=== PATIENT | female | born 1960 | race Caucasian/White ===

== ENCOUNTER → 2016-11-24 | Outpatient (CLI) | payer BC ==
[~2016-11-24] MED LIST: ALLERGY SHOT INJ; ASCO-262 PO; CALCIUM CITRATE PO; CHOL10003 PO; CHOL5000 PO; CIPR500T78 PO; CYAN100053 IJ; ESTR1PAT10 PO; HORMONE CREAM TOP; HYDR-34 PO; LRT10T PO; LVT.1T PO; METR500T PO; MULT-974 PO; NAPR250T PO; NATURE THROID PO; OMEP-10 PO; THYR113. PO; VERA180T5 PO; VITAMIN C 1000MG PO; VRP80T PO; [UNRECOGNIZED DRUG - OTHER] PO
--- OUTSIDE RECORDS SUMMARY | 2016-11-24 07:49 | XMS REPORT | Continuity of Care Document ---
Author Author [facility] Organization [facility] Address Unknown Phone Unavailable Allergies Active Description Code Type Severity Reaction Onset Reported/Identified Relationship to Patient Clinical Status Yes cephalexin [id number] Drug Allergy Mild RASH 08/23/2010 Yes Penicillins [id number] Drug Allergy Mild SOA 08/23/2010 Yes Penicillins [id number] Drug Allergy Severe SOA 12/07/2014 Medications Problems Date Dx Coded Attending Type Code Diagnosis Diagnosed By 08/23/2010 Ot 845.00 08/23/2010 Ot 959.7 08/23/2010 Ot E000.8 08/23/2010 Ot E849.5 08/23/2010 Ot E927.8 02/08/2011 Ot 401.9 HYPERTENSION NOS 02/08/2011 Ot 719.41 JOINT PAIN-SHLDER 02/08/2011 Ot V57.1 PHYSICAL THERAPY NEC 02/08/2011 Ot V58.43 AFTERCARE POST SURGERY INJURY/TRAUMA 03/02/2011 Ot 401.9 HYPERTENSION NOS 03/02/2011 Ot 719.41 JOINT PAIN-SHLDER 03/02/2011 Ot V57.1 PHYSICAL THERAPY NEC 03/02/2011 Ot V58.43 AFTERCARE POST SURGERY INJURY/TRAUMA 08/27/2011 Ot 719.41 JOINT PAIN-SHLDER 08/27/2011 Ot V57.1 PHYSICAL THERAPY NEC 08/27/2011 Ot V58.43 AFTERCARE POST SURGERY INJURY/TRAUMA 10/07/2011 Ot 719.41 JOINT PAIN-SHLDER 10/07/2011 Ot V57.1 PHYSICAL THERAPY NEC 10/07/2011 Ot V58.43 AFTERCARE POST SURGERY INJURY/TRAUMA 01/13/2014 BELÉN CHARLES DO Ot 244.9 HYPOTHYROIDISM NOS 01/13/2014 BELÉN CHARLES DO Ot 276.51 DEHYDRATION 01/13/2014 BELÉN CHARLES DO Ot 427.9 CARDIAC DYSRHYTHMIA NOS 01/13/2014 BELÉN CHARLES DO Ot 562.11 DIVERTICULITIS COLON (W/O MENT OF HEMORR 01/13/2014 BELÉN CHARLES DO Ot 592.0 CALCULUS OF KIDNEY 12/06/2014 Ot V76.12 12/08/2014 BELÉN CHARLES DO Ot 244.9 HYPOTHYROIDISM NOS 12/08/2014 BELÉN CHARLES DO Ot 493.90 ASTHMA, UNSPECIFIED 12/08/2014 BELÉN CHARLES DO Ot 530.11 REFLUX ESOPHAGITIS 12/08/2014 BELÉN CHARLES DO Ot 553.3 DIAPHRAGMATIC HERNIA 12/08/2014 BELÉN CHARLES DO Ot 562.10 DIVERTICULOSIS COLON (W/O MENT OF HEMORR 12/08/2014 BELÉN CHARLES DO Ot 574.00 CHOLELITH W AC CHOLECYST 12/08/2014 BELÉN CHARLES DO Ot 577.0 ACUTE PANCREATITIS 12/21/2014 RADHA CHARLES TELEGRAPH OFFICE TELEPHONE CLERK Ot 536.8 12/21/2014 RADHA CHARLES TELEGRAPH OFFICE TELEPHONE CLERK Ot 574.20 01/21/2015 Ot V76.12 01/21/2015 Ot V76.12 01/21/2015 Ot V76.12 01/21/2015 RADHA CHARLES TELEGRAPH OFFICE TELEPHONE CLERK Ot 729.5 01/21/2015 RYLIE MCCALL DO Ot V76.12 01/21/2015 RADHA CHARLES TELEGRAPH OFFICE TELEPHONE CLERK Ot 709.9 01/21/2015 NICCI PEREZ DO Ot V72.84 01/21/2015 NICCI PEREZ DO Ot 530.11 01/21/2015 NICCI PEREZ DO Ot 562.10 01/21/2015 Ot V76.12 01/21/2015 RADHA CHARLES TELEGRAPH OFFICE TELEPHONE CLERK Ot 536.8 01/21/2015 RADHA CHARLES TELEGRAPH OFFICE TELEPHONE CLERK Ot 574.20 02/27/2015 Ot V76.12 04/16/2015 Ot V76.12 04/16/2015 Ot V76.12 04/16/2015 Ot V76.12 04/16/2015 RADHA CHARLES TELEGRAPH OFFICE TELEPHONE CLERK Ot 729.5 04/16/2015 RYLIE MCCALL DO Ot V76.12 04/16/2015 RADHA CHARLES TELEGRAPH OFFICE TELEPHONE CLERK Ot 709.9 04/16/2015 PEREZ NICCI DRISCOLL Devyn Ot V72.84 04/16/2015 PEREZ NICCI DRISCOLL Devyn Ot 530.11 04/16/2015 [place] BRIAN DRISCOLLELLY Shepard Ot 562.10 04/16/2015 Ot V76.12 04/16/2015 RADHA CHARLES TELEGRAPH OFFICE TELEPHONE CLERK Ot 536.8 04/16/2015 RADHA CHARLES TELEGRAPH OFFICE TELEPHONE CLERK Ot 574.20 04/16/2015 Ot V76.12 04/16/2015 Ot V76.12 04/16/2015 Ot V76.12 04/16/2015 RADHA CHARLES TELEGRAPH OFFICE TELEPHONE CLERK Ot 729.5 04/16/2015 RYLIE MCCALL DO Ot V76.12 04/16/2015 RADHA CHARLES TELEGRAPH OFFICE TELEPHONE CLERK Ot 709.9 04/16/2015 [place] NICCI D Ot V72.84 04/16/2015 [place] INCCI D Ot 530.11 04/16/2015 [place] BRIAN DRISCOLLELLY Shepard Ot 562.10 04/16/2015 Ot V76.12 04/16/2015 RADHA CHARLES TELEGRAPH OFFICE TELEPHONE CLERK Ot 536.8 04/16/2015 RADHA CHARLES TELEGRAPH OFFICE TELEPHONE CLERK Ot 574.20 11/25/2015 RYLIE MCCALL DO Ot Z12.31 12/09/2015 DARON MCCALL DOA Sandy Ot Z12.31 12/19/2015 DARON MCCALL DOA C Ot Z12.31 12/19/2015 DARON MCCALL DOA C Ot Z12.31 03/03/2016 BELÉN CHARLES DO Ot R07.9 CHEST PAIN, UNSPECIFIED 03/03/2016 BELÉN CHARLES DO Ot R07.9 CHEST PAIN, UNSPECIFIED 03/19/2016 BELÉN CHARLES DO Ot R07.9 CHEST PAIN, UNSPECIFIED 05/27/2016 Ot V76.12 OTH SCREEN MAMMO-MALIGN NEOPLASM OF [place] 05/27/2016 RADHA CHARLES TELEGRAPH OFFICE TELEPHONE CLERK Ot 729.5 PAIN IN LIMB 05/27/2016 RYLIE MCCALL DO Ot V76.12 OTH SCREEN MAMMO-MALIGN NEOPLASM OF [place] 05/27/2016 RADHA CHARLES TELEGRAPH OFFICE TELEPHONE CLERK Ot 709.9 SKIN DISORDER NOS 05/27/2016 NICCI PEREZ DO Ot V72.84 EXAM PRE-OPERATIVE NOS 05/27/2016 NICCI PEREZ DO Ot 530.11 REFLUX ESOPHAGITIS 05/27/2016 NICCI PEREZ DO Ot 562.10 DIVERTICULOSIS COLON (W/O MENT OF HEMORR 05/27/2016 Ot V76.12 OTH SCREEN MAMMO-MALIGN NEOPLASM OF [place] 05/27/2016 RADHA CHARLES TELEGRAPH OFFICE TELEPHONE CLERK Ot 536.8 STOMACH FUNCTION DIS NEC 05/27/2016 RADHA CHARLES TELEGRAPH OFFICE TELEPHONE CLERK Ot 574.20 CHOLELITHIASIS NOS 11/24/2016 RYLIE MCCALL DO Ot Z12.31 ENCNTR SCREEN MAMMOGRAM FOR MALIGNANT NE 11/24/2016 BELÉN CHARLES DO Ot R07.9 CHEST PAIN, UNSPECIFIED Procedures Code Description Performed By Performed On 51.23 12/07/2014 Results Encounters ACCT No. Visit Date/Time Discharge Status Pt. Type Provider Facility Loc./Unit Complaint [id number] 12/07/2014 11:11:00 2014 10:50:00 DIS Inpatient BELÉN CHARLES DO [facility] SURGICAL PANCREATITIS [id number] 12/07/2014 09:41:00 2014 23:59:59 CLS Outpatient RADHA CHARLES [facility] RAD ACUTE ABDOMINAL PAIN [id number] 03/20/2014 11:20:00 2013 23:59:59 CLS Outpatient NICCI PEREZ DO [facility] SDC DIVERTICULITIS [id number] 03/15/2014 07:25:00 2013 23:59:59 CLS Outpatient NICCI PEREZ DO [facility] PREOP DIVERTICULITIS [id number] 01/11/2014 17:41:00 2013 10:41:00 DIS Inpatient BELÉN CHARLES DO [facility] 4TH DIVERTICULITIS [id number] 12/12/2013 09:55:00 2013 23:59:59 CLS Outpatient RADHA CHARLES TELEGRAPH OFFICE TELEPHONE CLERK [facility] LAB NON-HEALING LESION OCCIPITAL SCALP [id number] 11/17/2013 07:19:00 2013 23:59:59 CLS Outpatient RYLIE MCCALL DO [facility] RAD SCREENING [id number] 05/04/2013 10:24:00 2012 23:59:59 CLS Outpatient RADHA CHARLES TELEGRAPH OFFICE TELEPHONE CLERK [facility] RAD L RYDER PAIN [id number] 11/24/2016 07:45:00 ACT Outpatient RYLIE MCCALL DO [facility] RAD DISCHARGE [id number] 03/02/2016 06:41:00 ACT Outpatient BELÉN CHARLES DO [facility] CARD CHEST PAIN [id number] 11/22/2015 09:51:00 ACT Outpatient RYLIE MCCALL DO [facility] RAD SCREENING [id number] 01/21/2015 18:42:00 Document Registration [id number] 01/21/2015 18:41:00 Document Registration [id number] 01/21/2015 18:41:00 Document Registration [id number] 01/21/2015 18:41:00 Document Registration [id number] 01/21/2015 18:41:00 Document Registration [id number] 11/19/2014 09:50:00 Document Registration [id number] 09/18/2011 08:00:00 Document Registration [id number] 08/26/2011 08:02:00 Document Registration [id number] 11/06/2010 09:27:00 Document Registration
--- NOTE | 2016-11-24 08:29 | Diagnostic Imaging Report ---
EXAMINATION: Bilateral diagnostic mammogram. CAD is utilized. The current study was also evaluated with a Computer Aided Detection (CAD) system. COMPARISON: 11/22/15. FINDINGS: The breasts are composed of scattered fibroglandular densities. There is no mass, architectural distortion or suspicious calcification. Benign appearing calcifications are seen. IMPRESSION: No mammographic evidence of malignancy. Ultrasound evaluation pending. ACR BI-RADS Category 0: Incomplete. (Needs additional imaging evaluation). Result letter will be mailed to the patient. Note: At least 10% of breast cancer is not imaged by mammography. Dictated by: Dictated on workstation # [id number]
--- NOTE | 2016-11-24 08:56 | Diagnostic Imaging Report ---
EXAMINATION: Right breast ultrasound. INDICATION: Right nipple discharge. FINDINGS: The 4 quadrants and retroareolar region of the right breast were scanned with a lesion seen at the 3 o'clock retroareolar area measuring 0.5 x 0.5 x 0.6 cm. It has increased color-flow, compatible with a solid lesion. It is circumscribed and in favor of a benign etiology. No other lesion is seen. The findings and recommendations were discussed personally with the patient at the time of dictation. IMPRESSION: There is a 0.6 cm solid nodule in the retroareolar 3 o'clock zone, favored to be benign. An ultrasound-guided biopsy is recommended. ACR BI-RADS Category 4A: Low suspicion of malignancy. The report was faxed to the office of Dr. Alcantar by CARLOS at 9 AM. BI-RADS 4A. Please fax is also present physician and document Dictated by: Dictated on workstation # [id number]
== END ==
LOC: RAD 07:45
PROVIDERS: ATTEND Obstetrics & Gynecology
DX: N64.52 Nipple discharge (principal); N63 Unspecified lump in breast
CPT/HCPCS: 76641; 77066

== ENCOUNTER → 2016-11-25 | Outpatient (CLI) | payer BC ==
[~2016-11-25] VITALS: Ht 167.6 cm; Wt 64.4 kg
[~2016-11-25] MED LIST changes: +LIDOCAINE 1% INJ 20 ML (XYLOCAINE) VIAL INJ ONE; +LIDOCAINE 1% INJ 20 ML (XYLOCAINE) VIAL ONE
[2016-11-25 13:02] VITALS: BP 130/87
[2016-11-25 13:57] VITALS: BP 120/87
--- NOTE | 2016-11-25 16:48 | Diagnostic Imaging Report ---
EXAMINATION: Vacuum-assisted ultrasound-guided biopsy of breast mass right. A metallic clip placed to jodi biopsy site. INDICATION: Right breast mass. CONSENT: Informed consent was obtained from the patient. The risks, benefits, potential complications and alternatives were reviewed and all questions answered to the patient's satisfaction. FINDINGS: Ultrasound images demonstrate retroareolar 3:00 mass. PROCEDURE: After sterile preparation and draping, 1% lidocaine was utilized for local anesthesia. A vacuum-assisted biopsy device with 14-gauge needle was introduced under live ultrasound guidance into the lesion. Good needle position was documented with ultrasound images. A metallic clip was placed to jodi the site of the biopsy. A subsequent mammogram is performed and confirms the proper positioning of the clip. Multiple samples were obtained and sent to pathology. The patient tolerated the procedure well with no immediate complications. IMPRESSION: Successful ultrasound-guided biopsy of retroareolar 3:00 mass. A metallic clip placed to jodi biopsy site. Dictated by: Dictated on workstation # [id number]
--- NOTE | 2016-11-25 19:19 | Diagnostic Imaging Report ---
EXAMINATION: True lateral and CC projection mammogram of the right breast. INDICATION: Documentation of clip position after ultrasound-guided biopsy. IMPRESSION: There is good position of the clip placed after ultrasound-guided biopsy in the medial retroareolar region. Pathology results are pending. Dictated by: Dictated on workstation # [id number]
== END ==
LOC: RAD 12:47
PROVIDERS: ATTEND Obstetrics & Gynecology
DX: R92.8 Other abnormal and inconclusive findings on diagnostic imaging of breast (principal)
CPT/HCPCS: 19083; 88305

== ENCOUNTER → 2017-11-26 | Outpatient (CLI) | payer BC ==
[~2017-11-26] MED LIST changes: -LIDOCAINE 1% INJ 20 ML (XYLOCAINE) VIAL INJ ONE; -LIDOCAINE 1% INJ 20 ML (XYLOCAINE) VIAL ONE
--- NOTE | 2017-11-26 18:08 | Diagnostic Imaging Report ---
Digital mammogram bilateral screening. This study was compared to the prior exams of 11/24/2016, 11/22/2015, and 11/19/2014. At this time, there are no current complaints. The current study was also evaluated with a Computer Aided Detection (CAD) system. FINDINGS: The fibroglandular tissue in both breasts is heterogeneously dense. This does limit the sensitivity of this exam. On the craniocaudal view of the right breast in the retroareolar region there is an area of increased density. This finding was not clearly evident on the previous exams. This area of increased density is not as striking on the MLO view and this finding may merely be secondary to fibroglandular tissue alone. Even so, I would recommend that a compression view of this area be obtained in both the MLO and CC projections for further study. Ultrasound should also be performed. The left breast is unchanged. IMPRESSION: Additional mammographic views and ultrasound of the right breast will be recommended for further study. ACR BI-RADS Category 0: Incomplete. (Needs additional imaging evaluation). Result letter will be mailed to the patient. Note: At least 10% of breast cancer is not imaged by mammography. Dictated by: Dictated on workstation # [id number]
== END ==
LOC: RAD 10:11
PROVIDERS: ATTEND Obstetrics & Gynecology
DX: Z12.31 Encounter for screening mammogram for malignant neoplasm of breast (principal)
CPT/HCPCS: 77067

== ENCOUNTER → 2017-12-06 | Outpatient (CLI) | payer BC ==
--- NOTE | 2017-12-06 19:46 | Diagnostic Imaging Report ---
INDICATION: Right breast density. Patient presents for additional views. COMPARISON: Correlation is made with recent screening study from 11/26/2017. The current study was also evaluated with a Computer Aided Detection (CAD) system. FINDINGS: Reportedly, the patient underwent biopsy in the retroareolar right breast since the mammogram from 11/25/2016. Biopsy results did show intraductal papilloma. The density in the retroareolar right breast likely represents postsurgical scarring. Additional views in the CC, ML spot compression views, and a conventional 90 degree lateral view in the 3-D technique were obtained. No mass is seen. There are no malignant appearing microcalcifications. IMPRESSION: Additional views fail to demonstrate a discrete mass. The area of density in the retroareolar right breast most likely represents postsurgical scarring. The patient may return to routine annual screening mammography. ACR BI-RADS Category 2: Benign findings. Result letter will be mailed to the patient. Note: At least 10% of breast cancer is not imaged by mammography. Dictated by: Dictated on workstation # [id number]
== END ==
LOC: RAD 09:15
PROVIDERS: ATTEND Nurse Practitioner
DX: R92.8 Other abnormal and inconclusive findings on diagnostic imaging of breast (principal)

== ENCOUNTER 2018-06-07 11:35 | Outpatient (RCR) | payer BC | END 2018-06-13 13:27 | disposition home or self-care (01) | PROVIDERS: ATTEND Orthopaedic Surgery | DX: Z47.89 Encounter for other orthopedic aftercare (principal); M25.512 Pain in left shoulder ==

== ENCOUNTER 2018-08-26 08:33 | Outpatient (RCR) | payer BC | END 2018-08-26 09:54 | disposition home or self-care (01) | PROVIDERS: ATTEND Orthopaedic Surgery | DX: Z47.89 Encounter for other orthopedic aftercare (principal); M25.512 Pain in left shoulder ==

== ENCOUNTER → 2018-12-02 | Outpatient (CLI) | payer BC ==
--- NOTE | 2018-12-02 11:01 | Diagnostic Imaging Report ---
INDICATION: Routine screening. Comparison is made with prior mammogram from 11/26/2017 and 11/24/2016. 2-D and 3-D bilateral screening mammography was performed with a Computer Aided Detection (CAD) system. FINDINGS: Scattered fibroglandular densities are identified bilaterally. The parenchymal pattern is stable. No mass or malignant appearing microcalcifications are seen. The axillae are unremarkable. IMPRESSION: No mammographic features suspicious for malignancy are identified. ACR BI-RADS Category 1: Negative. Result letter will be mailed to the patient. Note: At least 10% of breast cancer is not imaged by mammography. Dictated by: Dictated on workstation # [id number]
== END ==
LOC: RAD 08:11
PROVIDERS: ATTEND Obstetrics & Gynecology
DX: Z12.31 Encounter for screening mammogram for malignant neoplasm of breast (principal); Z01.419 Encounter for gynecological examination (general) (routine) without abnormal findings
CPT/HCPCS: 77067

== ENCOUNTER → 2019-02-16 | Outpatient (CLI) | payer BC ==
--- NOTE | 2019-02-16 12:08 | Diagnostic Imaging Report ---
MRI LT UPPER EXT JOINT W/O Technique: Multiplanar, multisequence MR imaging of the left shoulder was performed without contrast. Comparison: Left shoulder MRI from 03/04/2018. Indication: Persistent left shoulder pain. Three rotator cuff repairs in the past. Findings: Rotator cuff: Multiple soft tissue anchors are present within the humeral head from prior superior rotator cuff repair. Recurrent full-thickness and complete tear of the supraspinatus has torn fibers retracted to the level of the glenohumeral joint. Full-thickness tear of the anterior one half of the infraspinatus is present. Moderate fatty atrophy of the supraspinatus and superior one half of the infraspinatus has developed. The teres minor remains intact. Subscapularis is also intact. Glenoid labrum: Diffuse degenerative truncation of the glenoid labrum. No paralabral cyst. Long head of biceps: The intracapsular segment of the long head of the biceps is not visualized and may be torn or has undergone tenotomy. Bones and cartilage: Superior subluxation of the humeral head due to superior rotator cuff tear. Multifocal partial-thickness chondromalacia within the glenohumeral joint. Hypertrophic degenerative changes of the acromioclavicular joint. Undersurface remodeling of the humeral head secondary to superior subluxation of the humeral head. Soft tissues: Small glenohumeral joint effusion. No MRI findings to suggest adhesive capsulitis. Fluid in the subacromial and subdeltoid space is compatible with full-thickness rotator cuff tear. IMPRESSION: 1. Recurrent massive rotator cuff tear includes a complete and retracted tear of the supraspinatus and a full-thickness tear of the anterior one half of the infraspinatus. 2. Moderate rotator cuff tear arthropathy of the glenohumeral joint. 3. Tear versus tenotomy of the long head of the biceps. Dictated by: Dictated on workstation # [id number]
== END ==
LOC: RAD 08:58
PROVIDERS: ATTEND Nurse Practitioner
DX: M75.122 Complete rotator cuff tear or rupture of left shoulder, not specified as traumatic (principal); M12.812 Other specific arthropathies, not elsewhere classified, left shoulder; Z98.890 Other specified postprocedural states
CPT/HCPCS: 73221

== ENCOUNTER → 2019-06-26 | Outpatient (RCR) | payer BC | END | disposition home or self-care (01) | PROVIDERS: ATTEND Orthopaedic Surgery | DX: Z98.890 Other specified postprocedural states (principal) ==

== ENCOUNTER 2019-09-22 08:00 | Outpatient (RCR) | payer BC | END 2019-09-25 09:09 | disposition home or self-care (01) | PROVIDERS: ATTEND Orthopaedic Surgery | DX: M75.112 Incomplete rotator cuff tear or rupture of left shoulder, not specified as traumatic (principal); Z98.890 Other specified postprocedural states ==

== ENCOUNTER → 2019-12-08 | Outpatient (CLI) | payer BC ==
--- NOTE | 2019-12-08 14:22 | Diagnostic Imaging Report ---
INDICATION: Pain below the left nipple. Comparison is made with prior mammogram 12/02/2018 and 11/26/2017. 2-D and 3-D bilateral diagnostic mammography was performed with CAD. Scattered fibroglandular densities are identified bilaterally. The overall parenchymal pattern is stable. There is some lucency in the retroareolar slightly inner left breast, similar to prior exam. This could represent a lipoma. No other mass is seen. No malignant-appearing microcalcifications are seen. Axillae are unremarkable. IMPRESSION: BI-RADS 0 No suspicious mammographic features. Even so, directed sonographic interrogation of the area of pain just below the left nipple is recommended and will be performed today. ACR BI-RADS Category 0: Incomplete. (Needs additional imaging evaluation). Result letter will be mailed to the patient. Note: At least 10% of breast cancer is not imaged by mammography. Dictated by: Dictated on workstation # [id number]
--- NOTE | 2019-12-08 15:16 | Diagnostic Imaging Report ---
INDICATION: Pain below the left nipple. CORRELATION is made with diagnostic mammogram performed earlier the same day. Sonographic interrogation of the area of pain in the retroareolar and infra-areolar location was performed. No sonographic abnormality is identified. No solid or cystic mass is detected. IMPRESSION: BI-RADS Category 1 No sonographic abnormality is identified. ACR BI-RADS Category 1: Negative. Result letter will be mailed to the patient. Note: At least 10% of breast cancer is not imaged by mammography. Dictated by: Dictated on workstation # [id number]
== END ==
LOC: RAD 12:51
PROVIDERS: ATTEND Obstetrics & Gynecology
DX: N64.4 Mastodynia (principal)
CPT/HCPCS: 76642; 77066

== ENCOUNTER → 2020-12-20 | Outpatient (CLI) | payer BC ==
--- NOTE | 2020-12-20 18:48 | Diagnostic Imaging Report ---
INDICATION: Routine screening. Comparison is made with prior mammogram 12/08/2019 and 12/02/2018. 2-D and 3-D bilateral screening mammography was performed with CAD. The current study was also evaluated with a Computer Aided Detection (CAD) system. 3-D tomosynthesis was also performed and reviewed. Scattered fibroglandular densities are identified bilaterally. No mass or malignant appearing microcalcifications are seen. Axillae are unremarkable. IMPRESSION: No mammographic features suspicious for malignancy are identified. ACR BI-RADS Category 1: Negative. Result letter will be mailed to the patient. Note: At least 10% of breast cancer is not imaged by mammography. Dictated by: Dictated on workstation # [id number]
== END ==
LOC: RAD 10:26
PROVIDERS: ATTEND Obstetrics & Gynecology
DX: Z12.31 Encounter for screening mammogram for malignant neoplasm of breast (principal)
CPT/HCPCS: 77063; 77067

== ENCOUNTER 2021-12-18 05:41 | Outpatient (CLI) | payer BC ==
[~2021-12-18 05:41] MED LIST changes: +ASPI-808 PO; +MONT4GRA PO
== END 2021-12-18 07:08 | disposition home or self-care (01) ==
LOC: PREOP 05:41
PROVIDERS: ATTEND Surgery
DX: Z01.818 Encounter for other preprocedural examination (principal)

== ENCOUNTER 2021-12-22 10:57 | Day surgery (SDC) | payer BC ==
[~2021-12-22] VITALS: Ht 167.6 cm; Wt 70.5 kg
[2021-12-22] MEDS ORDERED: LACTATED RINGERS 1,000 ML IV ONE (11:02)
[2021-12-22] MEDS ORDERED: LACTATED RINGERS 1,000 ML IV STA (11:03)
[2021-12-22] MEDS ORDERED: HURRICAINE EXT TUBE (BENZOCAINE) XX PRN (11:15)
[2021-12-22 11:20] VITALS: BP 119/81
--- NOTE | 2021-12-22 11:43 | Progress Note-Pre Operative ---
Pre-Operative Progress Note H&P Reviewed The H&P was reviewed, patient examined and no changes noted. Time Seen by Provider: 11:40 Date H&P Reviewed: Dec 22, 2021 Time H&P Reviewed: 11:40 Pre-Operative Diagnosis: Chronic Gastritis, Dysphagia CARLOS EDUARDO MANLEY DO Dec 22, 2021 11:43
[2021-12-22] MEDS ORDERED: proPOfol 200 MG/20 ML (DIPRIVAN) VIAL IV ONE ×2 (11:58→12:09)
[2021-12-22 12:19] VITALS: BP 112/65
--- NOTE | 2021-12-22 12:19 | Progress Note-Post Operative ---
Post-Operative Progess Note Surgeon (s)/Force Adjustment Supervisor (s) Surgeon CARLOS EDUARDO MANLEY DO Force Adjustment Supervisor: none Pre-Operative Diagnosis Chronic Gastritis, Dysphagia Post-Operative Diagnosis Gastritis Esophagitis Gastric polyp hiatal hernia Procedure & Operative Findings Date of Procedure 12/22/21 Procedure Performed/Findings EGD with hot bx, removal of polyp EGD with bx PROCEDURE NOTE: After informed consent was obtained, the patient was brought to the endoscopy suite, placed in bed in left lateral decubitus position. She was administered IV sedation by the STAFF RADIOGRAPHER who then monitored vitals the entire time, heart rate, blood pressure and pulse ox and the scope was inserted down the mouth through the esophagus into the stomach. On the way down, noted some mild esophagitis, took a picture, pushed into the stomach, pushed past the antrum into the duodenum; duodenum looked good. Pulled back and noted moderate gastritis of the antrum and did a biopsy here. Then retroflexed the scope and saw a small hiatal hernia, took a picture of this and then noted a larger flat polyp in the cardia. Elected to do a hot biopsy and completely remove the polyp in two bites. Finally pulled the scope into the GE junction, took another picture of the esophagitis and then did a biopsy of the GE junction. Pushed the scope back into the stomach, suctioned all the air out of the stomach. At this point pulled the scope up the esophagus and out the mouth. The patient tolerated the procedure, and she recovered in endoscopy suite. Anesthesia Type IV sedation by anesthesia Estimated Blood Loss Estimated blood loss (mL): scant Specimens/Packing Specimens Removed antral bx GE jx bx body of stomach bx Gastric polyp CARLOS EDUARDO MANLEY DO Dec 22, 2021 12:19
--- NOTE | 2021-12-22 12:19 | Endoscopy Discharge Instruct ---
Endo Procedure/Findings Findings 1.: Polyp 2.: Gastritis 3.: Hiatal Hernia Discharge Instructions - Activity: You might feel a little sleepy until tomorrow. This is due to the medicine you received to relax you. Until tomorrow, you should: NOT drive a car, operate machinery or power tools. NOT drink any alcoholic beverages. NOT make any important decisions or sign importortant papers. Do not return to work until tomorrow, unless otherwise instructed. Resume previous activities tomorrow. Diet: Start by taking liquids. If you tolerate liquids, advance to solid food. 1.: EGD in 3 years Notify Physician - If you experience excessive bleeding, unusual abdominal pain, fever, or chest pain, contact your doctor immediately. CARLOS EDUARDO MANLEY DO Dec 22, 2021 12:19
[2021-12-22 12:25] VITALS: BP 115/70
[2021-12-22 12:50] VITALS: BP 120/68
--- NOTE | 2021-12-22 13:22 | Anesthesia-General Post-Op ---
MAC Patient Condition Mental Status/LOC: Same as Preop Cardiovascular: Satisfactory Nausea/Vomiting: Absent Respiratory: Satisfactory Pain: Controlled Complications: Absent Post Op Complications Complications None Follow Up Care/Instructions Patient Instructions None needed. Anesthesiology Discharge Order Discharge Order Patient is doing well, no complaints, stable vital signs, no apparent adverse anesthesia problems. OH TOSCANO DO Dec 22, 2021 13:22
== END 2021-12-22 13:02 | disposition home or self-care (01) ==
LOC: ENDO 10:57
PROVIDERS: ATTEND Surgery
DX: K29.50 Unspecified chronic gastritis without bleeding (principal); K20.90 Esophagitis, unspecified without bleeding; K31.7 Polyp of stomach and duodenum; K44.9 Diaphragmatic hernia without obstruction or gangrene; K62.3 Rectal prolapse; Z87.19 Personal history of other diseases of the digestive system; Z79.82 Long term (current) use of aspirin

== ENCOUNTER 2023-01-05 10:42 | Emergency (ER) | payer BC ==
[~2023-01-05] VITALS: Ht 167.7 cm; Wt 68.2 kg
[~2023-01-05 10:42] MED LIST changes: -MONT4GRA PO; +MONT4GRA14 PO
[2023-01-05 11:41] LABS: BILIRUBIN,URINE NEGATIVE (NEGATIVE); CLARITY,URINE CLEAR; COLOR,URINE YELLOW; GLUCOSE, URINE (UA) NEGATIVE (NEGATIVE); KETONES,URINE NEGATIVE (NEGATIVE); LEUKOCYTE ESTERASE ,URINE NEGATIVE (NEGATIVE); NITRITE,URINE NEGATIVE (NEGATIVE); PH,URINE 7.5 (5-9); PROTEIN,URINE NEGATIVE (NEGATIVE)
[2023-01-05] MEDS ORDERED: fentaNYL INJ 100 MCG/2 ML AMP IVP STA (11:43)
[2023-01-05] MEDS ORDERED: ONDANSETRON 4 MG/2 ML (SDV) Z0FRAN IVP ONE (11:45)
[2023-01-05 11:50] LABS: BASOPHILS # (AUTO) 0.1 10^3/uL (0.0-0.1); BASOPHILS % (AUTO) 1 % (0-10); EOSINOPHILS # (AUTO) 0.2 10^3/uL (0.0-0.3); EOSINOPHILS % (AUTO) 2 % (0-10); HEMATOCRIT 40 % (35-52); HEMOGLOBIN 13.6 g/dL (11.5-16.0); LYMPHOCYTES # (AUTO) 0.5 10^3/uL (1.0-4.0); LYMPHOCYTES % (AUTO) 5 % (12-44); MEAN CORPUSCULAR HEMOGLOBIN 31 pg (25-34); MEAN CORPUSCULAR HGB CONC 34 g/dL (32-36); MEAN CORPUSCULAR VOLUME 90 fL (80-99); MEAN PLATELET VOLUME 9.6 fL (9.0-12.2); MONOCYTES # (AUTO) 0.2 10^3/uL (0.0-1.0); MONOCYTES % (AUTO) 2 % (0-12); NEUTROPHILS # (AUTO) 9.7 10^3/uL (1.8-7.8); NEUTROPHILS % (AUTO) 91 % (42-75); PLATELET COUNT 217 10^3/uL (130-400); WHITE BLOOD COUNT 10.6 10^3/uL (4.3-11.0)
[2023-01-05 11:52] LABS: BACTERIA,URINE TRACE /HPF; RBC,URINE RARE /HPF; SQUAMOUS EPITHELIAL CELL,UR 0-2 /HPF
--- NOTE | 2023-01-05 11:52 | ED Abdominal Pain ---
General Chief Complaint: Abdominal/GI Problems Stated Complaint: VOMITING | CHILLS Source of Information: Patient Exam Limitations: No Limitations (HANNY GARCIA APRN) History of Present Illness Date Seen by Provider: Jan 05, 2023 Time Seen by Provider: 11:32 Initial Comments 62-year-old female presents to the ED with complaints of chills, dehydration, generalized body aches, vomiting for the last couple hours. She reports difficulty eating breakfast this morning, but was able to after the second attempt to eat. She was then on her way to the [employer] when she suddenly got severe chills and shakes. She then vomited. Reports she has vomited 3 times this morning. States she feels like her mouth is dry and her eyes are dry. She reports history of diverticulitis, states it has been a couple of years since she had to be on antibiotics for it. She reports mild lower abdominal pain, states that she often has generalized abdominal pain, thinks that the lower abdominal pain is little bit worse than normal. She states she last had a bowel movement this morning, states it was small. Reported pain in rectum when defecating. She reports she has a prolapsed rectum which is being treated and monitored. She denies chest pain, shortness of air, diarrhea, constipation. (HANNY GARCIA APRN) Allergies and Home Medications Allergies Coded Allergies: Penicillins (Unverified Allergy, Severe, SOA, 12/07/14) cephalexin (Unverified Allergy, Mild, RASH, 08/23/10) Patient Home Medication List Home Medication List Reviewed: Yes (HANNY GARCIA APRN) Aspirin (Aspirin) 325 Mg Tablet, 325 MG PO DAILY, (Reported) Entered as Reported by: SEBASTIAN KELLY on 12/17/21 1346 Cholecalciferol (Vitamin D3) 5,000 Unit Capsule, 5,000 UNIT PO DAILY, (Reported) Entered as Reported by: JANAE HADLEY on 01/12/14 0845 Ciprofloxacin HCl (Ciprofloxacin HCl) 500 Mg Tablet, 500 MG PO BID Prescribed by: Hanny Garcia on 01/05/23 1349 Metronidazole (Metronidazole) 500 Mg Tablet, 500 MG PO TID Prescribed by: Hanny Garcia on 01/05/23 1349 Montelukast Sodium (Singulair) 4 Mg Gran.pack, 4 MG PO HS, (Reported) Entered as Reported by: SEBASTIAN KELLY on 12/17/21 1346 Multivitamin (Multi Vitamin Daily) 1 Each Tablet, 1 TAB PO DAILY, (Reported) Entered as Reported by: JANAE HADLEY on 01/12/14 0848 Ondansetron (Ondansetron Odt) 4 Mg Tab.rapdis, 4 MG SL Q4H PRN for NAUSEA/VOMITING Prescribed by: Hanny Garcia on 01/05/23 1349 Verapamil Hcl (Verapamil Er) 180 Mg Tablet.sa, 90 MG PO DAILY, (Reported) Entered as Reported by: JANAE HADLEY on 01/12/14 0848 [Adrenal Px Balance] , 2 CAP PO 1300, (Reported) Entered as Reported by: ELIZABETH JASSO on 12/07/14 1228 [Allergy Shot] , INJ WEEKLY ON SUNDAYS, (Reported) Entered as Reported by: JANAE HADLEY on 01/12/14 0845 [Vitamin C 1000MG] , 3,000 MG PO DAILY, (Reported) Entered as Reported by: JANAE HADLEY on 01/12/1445 Review of Systems Review of Systems Constitutional: see HPI (HANNY GARCIA APRN) Past Qcxmeqn-[id number]-Fhqfzr Hx Patient Social History Tobacco Use?: No Use of E-Cig and/or Vaping dev: No Substance use?: No Alcohol Use?: No Pt feels they are or have been: No (HANNY GARCIA APRN) Immunizations Up To Date Tetanus Booster (TDap): More than 5yrs Influenza Vaccine Up-to-Date: No; Not Current First/Initial COVID19 Vaccinat: NOT VACC Second COVID19 Vaccination Sivakumar: NO Third COVID19 Vaccination Date: NO (HANNY GARCIA APRN) Seasonal Allergies Seasonal Allergies: Yes (HANNY GARCIA APRN) Past Medical History Surgery/Hospitalization HX: HEART MURMER, DIVERTICULITIS Section, Hysterectomy, Orthopedic, Tonsillectomy Respiratory: Yes Sleep Apnea Cardiac: Yes Heart Murmur Neurological: No Reproductive Disorders: Yes (PCOS) Female Reproductive Disorders: Ovarian Cyst Sexually Transmitted Disease: No HIV/AIDS: No Genitourinary: No Gastrointestinal: Yes Diverticulosis Musculoskeletal: No Endocrine: Yes Hypothyroidsim HEENT: No Cancer: No Psychosocial: No Integumentary: No Blood Disorders: No Adverse Reaction/Blood Tranf: No (HANNY GARCIA APRN) Family Medical History Cancer 19 FATHER, Onset:76 (NON HODGENS LYMPHOMA) Heart disease 19 MOTHER, Onset:93 (COMPLICATIONS WITH HEART VALVE) Physical Exam Vital Signs Vital Signs - First Documented 01/05/23 11:08 Temp 38.2 Pulse 118 Resp 18 B/P (MAP) 125/79 (94) Pulse Ox 96 O2 Delivery Room Air (MAEGAN KEITH MD) Vital Signs Capillary Refill : (HANNY GARCIA APRN) Height/Weight/BMI Height: 5'6.00" Weight: 142lbs. 0.0oz. 64.657588yb; 25.09 BMI Method:Stated General Appearance: WD/WN, no apparent distress Neck: supple, normal inspection Respiratory: lungs clear, normal breath sounds, no respiratory distress, no accessory muscle use Cardiovascular: regular rate, rhythm, no edema, no gallop, no JVD, no murmur Gastrointestinal: normal bowel sounds, soft, tenderness (Mild generalized tenderness) Extremities: normal range of motion, normal inspection Neurologic/Psychiatric: alert, normal mood/affect Skin: normal color, warm/dry (HANNY GARCIA APRN) Focused Exam Lactate Level 01/05/23 12:00: Lactic Acid Level 1.20 (MAEGAN KETIH MD) Lactic Acid Level Laboratory Tests Test 01/05/23 12:00 Lactic Acid Level 1.20 MMOL/L (0.50-2.00) (MAEGAN KEITH MD) Progress/Results/Core Measures Results/Orders Lab Results Laboratory Tests Test 01/05/23 10:35 01/05/23 11:20 01/05/23 11:58 01/05/23 12:00 Range/Units Urine Color YELLOW Urine Clarity CLEAR Urine pH 7.5 5-9 Urine Specific Bennett 1.010 L 1.016-1.022 Urine Protein NEGATIVE NEGATIVE Urine Glucose (UA) NEGATIVE NEGATIVE Urine Ketones NEGATIVE NEGATIVE Urine Nitrite NEGATIVE NEGATIVE Urine Bilirubin NEGATIVE NEGATIVE Urine Urobilinogen 0.2 < = 1.0 MG/DL Urine Leukocyte Esterase NEGATIVE NEGATIVE Urine RBC (Auto) NEGATIVE NEGATIVE Urine RBC RARE /HPF Urine WBC NONE /HPF Urine Squamous Epithelial Cells 0-2 /HPF Urine Crystals PRESENT H /LPF Urine Amorphous Sediment MOD RYLEY PHOSPHATE H /LPF Urine Bacteria TRACE /HPF Urine Casts NONE /LPF Urine Mucus NEGATIVE /LPF Urine Culture Indicated NO White Blood Count 10.6 4.3-11.0 10^3/uL Red Blood Count 4.46 3.80-5.11 10^6/uL Hemoglobin 13.6 11.5-16.0 g/dL Hematocrit 40 35-52 % Mean Corpuscular Volume 90 80-99 fL Mean Corpuscular Hemoglobin 31 25-34 pg Mean Corpuscular Hemoglobin Concent 34 32-36 g/dL Red Cell Distribution Width 13.2 10.0-14.5 % Platelet Count 217 130-400 10^3/uL Mean Platelet Volume 9.6 9.0-12.2 fL Immature Granulocyte % (Auto) 1 % Neutrophils (%) (Auto) 91 H 42-75 % Lymphocytes (%) (Auto) 5 L 12-44 % Monocytes (%) (Auto) 2 0-12 % Eosinophils (%) (Auto) 2 0-10 % Basophils (%) (Auto) 1 0-10 % Neutrophils # (Auto) 9.7 H 1.8-7.8 10^3/uL Lymphocytes # (Auto) 0.5 L 1.0-4.0 10^3/uL Monocytes # (Auto) 0.2 0.0-1.0 10^3/uL Eosinophils # (Auto) 0.2 0.0-0.3 10^3/uL Basophils # (Auto) 0.1 0.0-0.1 10^3/uL Immature Granulocyte # (Auto) 0.1 0.0-0.1 10^3/uL Neutrophils % (Manual) 91 % Lymphocytes % (Manual) 5 % Monocytes % (Manual) 2 % Eosinophils % (Manual) 1 % Band Neutrophils 1 % Blood Morphology Comment NORMAL Sodium Level 137 135-145 MMOL/L Potassium Level 3.8 3.6-5.0 MMOL/L Chloride Level 103 98-107 MMOL/L Carbon Dioxide Level 22 21-32 MMOL/L Anion Gap 12 5-14 MMOL/L Blood Urea Nitrogen 16 7-18 MG/DL Creatinine 0.86 0.60-1.30 MG/DL Estimat Glomerular Filtration Rate 77 BUN/Creatinine Ratio 19 Glucose Level 104 70-105 MG/DL Calcium Level 9.7 8.5-10.1 MG/DL Corrected Calcium 9.5 8.5-10.1 MG/DL Total Bilirubin 0.9 0.1-1.0 MG/DL Aspartate Amino Transf (AST/SGOT) 24 5-34 U/L Alanine Aminotransferase (ALT/SGPT) 29 0-55 U/L Alkaline Phosphatase 86 40-136 U/L Total Protein 7.0 6.4-8.2 GM/DL Albumin 4.3 3.2-4.5 GM/DL Amylase Level 87 25-125 U/L Lipase 50 8-78 U/L Influenza Type A (RT-PCR) Not Detected Not Detecte Influenza Type B (RT-PCR) Not Detected Not Detecte SARS-CoV-2 RNA (RT-PCR) Not Detected Not Detecte Lactic Acid Level 1.20 0.50-2.00 MMOL/L (MAEGAN KEITH MD) Vital Signs/I&O 01/05/23 01/05/23 11:08 14:00 Temp 38.2 37.4 Pulse 118 95 Resp 18 18 B/P (MAP) 125/79 (94) 111/66 Pulse Ox 96 96 O2 Delivery Room Air (MAEGAN KEITH MD) Progress Progress Note : Time: 11:51 Progress Note Patient seen and evaluated, resting comfortably in bed, no acute distress. Based on exam and symptoms, work-up initiated including CBC, CMP, amylase, lipase, lactic acid, UA, CT abdomen pelvis. IV fluids, Zofran, fentanyl ordere d. [address] reviewed. CBC shows elevated neutrophil percentage 91. CMP grossly normal. Amylase and lipase normal. UA shows crystals and moderate amorphous sediment, negative for infection. COVID and flu negative. CT shows recurrent acute diverticulitis of the descending and sigmoid colon. No evidence of abscess or obstruction. Trace amount of free fluid. Results discussed with patient. Patient reports that she is feeling better. Will attempt p.o. challenge. If patient is successful with p.o. challenge, will discharge with antibiotics after second liter of fluids. 1340 patient passed p.o. challenge. Patient reports she is feeling better. Will give first dose of antibiotics here now and discharge with prescription for antibiotics and Zofran. Discharge instructions and return precautions provided. (HANNY GARCIA APRN) Diagnostic Imaging Diagonstic Imaging: CT Plain Films/CT/US/NM/MRI: abdomen, pelvis Comments [facility], [place] NAME: MABEL HOSKINS [facility] REC#: [id number] PT STATUS: REG ER : 1960 PHYSICIAN: HANNY GARCIA APRN ADMIT DATE: 01/05/23/ER Draft Date of Exam:01/05/23 CT ABDOMEN/PELVIS W INDICATION: Vomiting, abdominal pain. TECHNIQUE: Multiple contiguous axial images were obtained through the abdomen and pelvis after administration of intravenous contrast. Auto Exposure Controls were utilized during the CT exam to meet ALARA standards for radiation dose reduction. All CT scans use one or more of the following dose optimizing techniques: automated exposure control, MA and/or KvP adjustment based on patient size and exam type or iterative reconstruction. Comparison made with 01/11/2014. FINDINGS: The visualized portions of the lung bases show mild dependent atelectatic changes. There is no pleural fluid collection or free intraperitoneal air. The liver shows no focal lesion. Gallbladder is surgically absent. The spleen, adrenals, and pancreas appear normal. The kidneys bilaterally are unremarkable. There is no retroperitoneal mass or adenopathy. Visualized bowel loops show no overt obstruction. There is diverticulosis of the colon. There is abnormal edema and fat stranding about the junction of the descending colon and proximal sigmoid colon, compatible with acute diverticulitis. There is no associated abscess. Note that patient did have similar changes on the prior study of 01/11/2014, this likely represents recurrent diverticulitis rather than a chronic process. There is a minimal trace of free fluid in the pelvis. IMPRESSION: Findings compatible with recurrent acute diverticulitis in the colon at the junction of the descending and sigmoid colon. There is no evidence of abscess. There is a minimal trace of free fluid in the pelvis. There is no other acute finding. Patient has had previous cholecystectomy. Dictated on workstation # [id number] Dict: 01/05/23 1227 Trans: 01/05/23 1235 [id number] Interpreted by: MAITE PANIAGUA MD Electronically signed by: (HANNY GARCIA APRN) Departure Impression Primary Impression: Diverticulitis Disposition: 01 HOME, SELF-CARE Condition: Stable Departure-Patient Inst. Decision time for Depature: 13:43 (HANNY GARCIA APRN) Referrals: BELÉN CHARLES DO (PCP) Primary Care Physician RADHA CHARLES, RONNIE (Family) Primary Care Physician Patient Instructions: Diverticulitis Add. Discharge Instructions: Complete full course of antibiotics, even if you begin to feel better. Take Zofran as needed for nausea and vomiting. Follow-up with your primary care provider. Return for recurrent vomiting, if you are unable to keep your antibiotics down, severe pain, or any other new, concerning, or worsening symptoms. All discharge instructions reviewed with patient and/or family. Voiced understanding. Scripts Ondansetron (Ondansetron Odt) 4 Mg Tab.rapdis 4 MG SL Q4H PRN for NAUSEA/VOMITING, #20 TAB 0 Refills Prov: HANNY GARCIA APRN 01/05/23 Ciprofloxacin HCl (Ciprofloxacin HCl) 500 Mg Tablet 500 MG PO BID for 10 Days, #20 TAB 0 Refills Prov: HANNY GARCIA APRN 01/05/23 Metronidazole (Metronidazole) 500 Mg Tablet 500 MG PO TID for 10 Days, #30 TAB 0 Refills Prov: HANNY GARCIA APRN 01/05/23 ATTENDING PHYSICIAN NOTE: I was physically present as attending physician in the emergency department during the care of this patient. I have briefly discussed plan of care and disposition of this patient with Hanny Garcia NP. I did not personally interview or examine this patient. I was not otherwise directly involved in the decision making or delivery of care for this patient. (MAEGAN KEITH MD) Copy Copies To 1: BELÉN CHARLES BRITTANY R APRN Jan 05, 2023 11:52 MAEGAN KEITH MD Jan 06, 2023 12:47
[2023-01-05 11:53] LABS: AMORPHOUS SEDIMENT,UR MOD AMOR PHOSPHATE /LPF
[2023-01-05] MEDS: NS IV 1000 ML 1,000 ML IV SCH ×2 (11:53→13:03)
[2023-01-05 11:55] LABS: ALBUMIN 4.3 GM/DL (3.2-4.5)
[2023-01-05 11:56] LABS: POTASSIUM 3.8 MMOL/L (3.6-5.0)
[2023-01-05 11:57] LABS: CALCIUM 9.7 MG/DL (8.5-10.1)
[2023-01-05 12:00] LABS: BILIRUBIN,TOTAL 0.9 MG/DL (0.1-1.0)
[2023-01-05 12:02] LABS: CREATININE SERUM 0.86 MG/DL (0.60-1.30)
[2023-01-05] MEDS ORDERED: IOHEXOL 350 MG/ML 100 ML (OMNIPAQUE 350) VIAL IV ONE (12:15)
[2023-01-05] MEDS ORDERED: HOLD METFORMIN - RECEIVED CONTRAST 20 ML VIAL IV SCH (12:15)
[2023-01-05] MEDS ORDERED: NS 100 ML (IVPB) BAG IV ONE (12:15)
[2023-01-05 12:16] LABS: BAND NEUTROPHILS 1 %; EOSINOPHILS % (MANUAL) 1 %; LYMPHOCYTES % (MANUAL) 5 %; MONOCYTES % (MANUAL) 2 %; NEUTROPHILS % (MANUAL) 91 %; RBC MORPH NORMAL
--- NOTE | 2023-01-05 12:35 | Diagnostic Imaging Report ---
INDICATION: Vomiting, abdominal pain. TECHNIQUE: Multiple contiguous axial images were obtained through the abdomen and pelvis after administration of intravenous contrast. Auto Exposure Controls were utilized during the CT exam to meet ALARA standards for radiation dose reduction. All CT scans use one or more of the following dose optimizing techniques: automated exposure control, MA and/or KvP adjustment based on patient size and exam type or iterative reconstruction. Comparison made with 01/11/2014. FINDINGS: The visualized portions of the lung bases show mild dependent atelectatic changes. There is no pleural fluid collection or free intraperitoneal air. The liver shows no focal lesion. Gallbladder is surgically absent. The spleen, adrenals, and pancreas appear normal. The kidneys bilaterally are unremarkable. There is no retroperitoneal mass or adenopathy. Visualized bowel loops show no overt obstruction. There is diverticulosis of the colon. There is abnormal edema and fat stranding about the junction of the descending colon and proximal sigmoid colon, compatible with acute diverticulitis. There is no associated abscess. Note that patient did have similar changes on the prior study of 01/11/2014, this likely represents recurrent diverticulitis rather than a chronic process. There is a minimal trace of free fluid in the pelvis. IMPRESSION: Findings compatible with recurrent acute diverticulitis in the colon at the junction of the descending and sigmoid colon. There is no evidence of abscess. There is a minimal trace of free fluid in the pelvis. There is no other acute finding. Patient has had previous cholecystectomy. Dictated by: Dictated on workstation # [id number]
[2023-01-05] MEDS ORDERED: metroNIDAZOLE 500 MG (FLAGYL) TAB PO ONE (13:45)
[2023-01-05] MEDS ORDERED: CIPROFLOXACIN 500 MG (CIPRO) TABLET PO ONE (13:45)
[2023-01-05] MEDS ORDERED: CIPR500T5 PO (13:49)
[2023-01-05] MEDS ORDERED: METR-145 PO (13:49)
[2023-01-05] MEDS ORDERED: ONDA4TAB11 SL (13:49)
[2023-01-05 14:00] VITALS: BP 111/66
== END 2023-01-05 14:00 | disposition home or self-care (01) ==
LOC: EDUNIT# 10:42 → ER 10:44
DX: K57.32 Diverticulitis of large intestine without perforation or abscess without bleeding (principal); Z88.1 Allergy status to other antibiotic agents; Z20.822 Contact with and (suspected) exposure to COVID-19; Z28.310 Unvaccinated for COVID-19
CPT/HCPCS: 36415; 74177; 80053; 81000; 82150; 83605; 83690; 85007; 85027; 87636

== ENCOUNTER 2023-02-17 06:01 | Outpatient (CLI) | payer BC ==
[~2023-02-17] VITALS: Ht 167.6 cm; Wt 70.7 kg
[~2023-02-17 06:01] MED LIST changes: +CIPR500T5 PO; +METR-145 PO; +ONDA4TAB11 SL
[2023-02-22] MEDS ORDERED: MESA10005 RC (09:32)
[2023-02-22] MEDS ORDERED: METF-865 PO (09:32)
[2023-02-22] MEDS ORDERED: MULT-1136 PO (09:32)
[2023-02-22] MEDS ORDERED: ATOR10TA66 PO (09:32)
[2023-02-22] MEDS ORDERED: VERA180T55 PO (09:32)
[2023-02-22] MEDS ORDERED: CHOL500050 PO (09:32)
[2023-02-22] MEDS ORDERED: POTA-177 PO (09:32)
[2023-02-22] MEDS ORDERED: MONT-40 PO (09:32)
[2023-02-22] MEDS ORDERED: FURO20TA4 PO (09:32)
[2023-02-22] MEDS ORDERED: OMEG1CAP58 PO (09:34)
[2023-02-22] MEDS ORDERED: [UNRECOGNIZED DRUG - CODE] PO (09:34)
[2023-02-22] MEDS ORDERED: LACT1CAP39 PO (09:34)
== END 2023-02-22 09:43 | disposition home or self-care (01) ==
LOC: PREOP 06:01
PROVIDERS: ATTEND Surgery
DX: Z01.818 Encounter for other preprocedural examination (principal)

== ENCOUNTER 2023-03-01 07:32 | Day surgery (SDC) | payer BC ==
[~2023-03-01] VITALS: Ht 167.6 cm; Wt 70.7 kg
[~2023-03-01 07:32] MED LIST changes: +ATOR10TA66 PO; +CHOL500050 PO; +FURO20TA4 PO; +LACT1CAP39 PO; +MESA10005 RC; +METF-865 PO; +MONT-40 PO; +MULT-1136 PO; +OMEG1CAP58 PO; +POTA-177 PO; +VERA180T55 PO; +[UNRECOGNIZED DRUG - CODE] PO
[2023-03-01] MEDS ORDERED: LACTATED RINGERS 1,000 ML IV STA (07:33)
[2023-03-01 07:45] VITALS: BP 135/81
[2023-03-01] MEDS ORDERED: PROPOFOL INJECTION 50 ML IV ONE (08:36)
[2023-03-01 09:30] VITALS: BP 113/58
--- NOTE | 2023-03-01 09:33 | Progress Note-Post Operative ---
Post-Operative Progess Note Surgeon (s)/[facility] (s) Surgeon CARLOS EDUARDO MANLEY DO [facility]: FRANCISCA Rhoades Pre-Operative Diagnosis Screening, Hx of Diverticulitis Post-Operative Diagnosis Diverticula Int hemorrhoids Procedure & Operative Findings Date of Procedure 03/01/23 Procedure Performed/Findings Colonoscopy PROCEDURE NOTE: After informed consent was obtained, the patient was brought to the endoscopy suite, placed in bed in left lateral decubitus position. She was administered IV sedation by the SHOE REPA[employer]ER who then monitored her vitals the entire time, heart rate, blood pressure and pulse ox and the scope was inserted, on the way in noted diverticula in the sigmoid and descending colon; took a picture on the way out. Pushed all the way to about 140 cm and pushed into the cecum, took a picture of appendiceal orifice and noted the ileocecal valve. Then slowly withdrew the scope insufflating to look circumferentially at the bergeron starting in the cecum, up the ascending colon to the hepatic flexure, then down the transverse colon to the splenic flexure, into the descending colon down in the sigmoid and then into the rectal vault and retroflexed the scope. Took picture of the internal hemorrhoids. The patient tolerated the procedure. She was recovered in endoscopy suite. Recommended for repeat colonoscopy in 10 years. Anesthesia Type IV sedation by [employer]ER Estimated Blood Loss Estimated blood loss (mL): none Specimens/Packing Specimens Removed none CARLOS EDUARDO MANLEY DO Mar 01, 2023 09:33
--- NOTE | 2023-03-01 09:34 | Endoscopy Discharge Instruct ---
Endo Procedure/Findings Findings 1.: Diverticulosis 2.: Internal Hemorrhoids Discharge Instructions - Activity: You might feel a little sleepy until tomorrow. This is due to the medicine you received to relax you. Until tomorrow, you should: NOT drive a car, operate machinery or power tools. NOT drink any alcoholic beverages. NOT make any important decisions or sign importortant papers. Do not return to work until tomorrow, unless otherwise instructed. Resume previous activities tomorrow. Diet: Start by taking liquids. If you tolerate liquids, advance to solid food. 1.: Colonscopy in 10 years Notify Physician - If you experience excessive bleeding, unusual abdominal pain, fever, or chest pain, contact your doctor immediately. Follow-Up: Other Follow up in my office in one week CARLOS EDUARDO MANLEY DO Mar 01, 2023 09:34
[2023-03-01 09:35] VITALS: BP 100/57
[2023-03-01 09:40] VITALS: BP 105/60
[2023-03-01 09:45] VITALS: BP 102/61
[2023-03-01 10:06] VITALS: BP 102/61
--- NOTE | 2023-03-01 12:25 | Anesthesia-General Post-Op ---
MAC Patient Condition Mental Status/LOC: Same as Preop Cardiovascular: Satisfactory Nausea/Vomiting: Absent Respiratory: Satisfactory Pain: Controlled Complications: Absent Post Op Complications Complications None Follow Up Care/Instructions Patient Instructions None needed. Anesthesiology Discharge Order Discharge Order Patient is doing well, no complaints, stable vital signs, no apparent adverse anesthesia problems. No complications reported per nursing. KELSI BRODY CRNA Mar 01, 2023 12:25
== END 2023-03-01 10:15 | disposition home or self-care (01) ==
LOC: ENDO 07:32
PROVIDERS: ATTEND Surgery
DX: Z09 Encounter for follow-up examination after completed treatment for conditions other than malignant neoplasm (principal); K57.30 Diverticulosis of large intestine without perforation or abscess without bleeding; K64.8 Other hemorrhoids; G47.33 Obstructive sleep apnea (adult) (pediatric); Z87.19 Personal history of other diseases of the digestive system; Z28.310 Unvaccinated for COVID-19